=== PATIENT | female | born 1940 | race Two or more races ===

== ENCOUNTER 2018-06-10 08:21 | Day surgery (SDC) | payer OTHER ==
[~2018-06-10 08:21] MED LIST: ALENDRONATE SODI5 MG PO; METFORM PO; SYNTHROID100 MCG PO
[2018-06-10] MEDS ORDERED: ULTRACET PO (10:37)
== END 2018-06-10 18:30 | disposition home or self-care (01) ==
LOC: CIR.AMB 08:21
DX: K64.8 Other hemorrhoids (principal)